=== PATIENT | female | born 1995 ===

== ENCOUNTER 2022-05-12 14:50 | Emergency (ER) | payer SELFPAY ==
--- NOTE | ~2022-05-12 | XR_ITS ---
EXAMINATION: XR chest 2V 05/12/2022 17:17 INDICATION: Chest pain PROCEDURE: 2 view chest COMPARISON: No prior studies for comparison. FINDINGS: The lungs are clear. The cardiomediastinal silhouette is within normal limits. There are no pleural effusions. There is no pneumothorax suspected. IMPRESSION: 1: NO ACUTE CARDIOPULMONARY DISEASE. Reviewed, dictated and finalized at location A. [employer]TER
[2022-05-12 15:09] VITALS: BP 127/84; PULSE 85; RESP 16; TEMP 36.6; O2SAT 100
--- NOTE | 2022-05-12 15:09 | ECG_ITS ---
Measurements Intervals [place] Rate: 85 P: 46 DC: 150 QRS: 17 QRSD: 77 T: 19 QT: 349 QTc: 417 Interpretive Statements SINUS RHYTHM LOW-VOLTAGE QRS IN PRECORDIAL LEADS BORDERLINE ECG NO PREVIOUS ECG AVAILABLE FOR COMPARISON Electronically Signed On 05-12-2022 16:09:18 AMMUNITION SUPERVISOR by Lonny Sultana M.D.
[2022-05-12 15:24] LABS: Basophils Absolute Auto 0.1 K/mm3 (0.0-0.1); Basophils Percent Auto 0.5 % (0.2-1.2); Eosinophils Absolute Auto 0.1 K/mm3 (0-0.3); Eosinophils Percent Auto 1.1 % (0-4.4); Hematocrit 37.5 % (37.0-47.0); Hemoglobin 12.1 g/dL (12.0-15.0); Immature Granulocyte Absolute 0.03 K/mm3 (0.00-0.031); Immature Granulocyte Percent A 0.3 % (0-0.5); Lymphocytes Absolute Auto 2.37 K/mm3 (0.9-3.2); Mean Corpuscular HGB Conc 32.3 g/dl (32-36); Mean Corpuscular Hemoglobin 28.5 pg (26-34); Mean Corpuscular Volume 88.4 fl (80-100); Mean Platelet Volume 9.2 fl (7.4-10.4); Monocytes Absolute Auto 0.4 K/mm3 (0.1-0.6); Monocytes Percent Auto 4.6 % (2.6-8.5); Neutrophils Absolute Auto 6.2 K/mm3 (1.3-6.7); Neutrophils Percent Auto 67.5 % (45.5-73.1); Platelet Count Result 355 k/mm3 (150-375); Red Blood Count 4.24 M/mm3 (4.2-5.4); Red Cell Distribution Width 13.2 % (11.5-14.5); White Blood Count 9.1 K/mm3 (4.5-10.0)
[2022-05-12 15:31] LABS: Alanine Aminotransferase 32 U/L (6-35); Albumin Level 4.7 g/dL (3.5-5.1); Alkaline Phosphatase 56 U/L (38-126); Anion Gap 10 mmol/L (8-16); Aspartate Amino Transferase 27 U/L (14-36); Bilirubin,Total 0.3 mg/dL (0.2-1.3); Blood Urea Nitrogen 13 mg/dL (7-17); Calcium 8.9 mg/dL (8.4-10.2); Carbon Dioxide 22 mmol/L (22-30); Chloride 107 mmol/L (98-107); Estimated CRCL calculation 119 ml/min; Estimated Glomerular Filt Rate > 60; Glucose 119 mg/dL (65-110); Lipase 86 U/L (23-300); Sodium 139 mmol/L (137-145)
[2022-05-12 15:35] LABS: INR 1.1
[2022-05-12 15:36] LABS: Partial Thromboplastin Time 26.1 SECONDS (22.3-36.8)
[2022-05-12 15:43] LABS: Troponin I < 0.012 ng/mL (0.000-0.034)
--- NOTE | 2022-05-12 18:28 | PC.NURSE ---
patient left waiting room without being seen
== END 2022-05-12 19:58 | disposition left against medical advice (07) ==
PROVIDERS: Emergency Provider Emergency Medicine; PCP Physician Assistant
DX: R07.9 Chest pain, unspecified (principal)
CPT/HCPCS: 36415; 71046; 80053; 81025; 83690; 84484; 85025; 85610; 85730; 93005; 99199